=== PATIENT | male | born 1990 | race African-American/Black ===

== ENCOUNTER 2022-08-11 19:33 | Emergency (ER) | payer OTHER ==
[~2022-08-11] VITALS: Ht 180.3 cm; Wt 75.0 kg
[2022-08-11 19:41] VITALS: BP 121/81
[2022-08-11] MEDS ORDERED: CARB-173 EACH EAR (20:58)
== END 2022-08-11 22:30 | disposition home or self-care (01) ==
LOC: ER 19:33
DX: H61.23 Impacted cerumen, bilateral (principal); J45.909 Unspecified asthma, uncomplicated
CPT/HCPCS: 99282

== ENCOUNTER 2022-08-27 21:49 | Emergency (ER) | payer OTHER ==
[~2022-08-27] VITALS: Ht 180.3 cm; Wt 74.8 kg
[~2022-08-27 21:49] MED LIST: CARB-173 EACH EAR
[2022-08-28 04:26] VITALS: BP 127/74
== END 2022-08-28 04:27 | disposition home or self-care (01) ==
LOC: ER 22:00
DX: H61.21 Impacted cerumen, right ear (principal); J45.909 Unspecified asthma, uncomplicated
CPT/HCPCS: 69209; 99282; Z7610